=== PATIENT | female | born 1950 | race Caucasian/White ===

== ENCOUNTER 2017-09-09 10:00 | Emergency (ER) | payer OTHER ==
[~2017-09-09] VITALS: Ht 160 cm; Wt 73.9 kg
[~2017-09-09 10:00] MED LIST: ALBUTEROL SULFAT3 M1 INH; BACTRIM DS TAB1 EACH PO; CARDIZEM30 M1 PO; CYCLOBENZAPRINE5 M2 PO; GLUCOPHAGE XR500 M1 PO; LISINOPRIL5 M1 PO; MONTELUKAST SOD10 M1 PO; PANTOPRAZOLE SO40 M1 PO; PREDNISONE10 MG PO; REQUIP2 M1 PO; SIMVASTATIN40 M1 PO; SPIRIVA18 MCG INH; SYMBICORT 16010.2 GM INH; TIZANIDINE HCL2 M2 PO; VERAMYST10 GM NASB; WELLBUTRIN XL300 M2 PO; ZITHROMAX Z-PA250 M1 PO
[2017-09-09 10:06] VITALS: BP 170/83
--- NOTE | 2017-09-09 10:07 | ED HAND/WRIST INJURY COMPLAINT ---
History of Present Illness General Chief Complaint: Suture Removal/Wound Recheck Stated Complaint: WOUND CHECK Source: patient, old records Exam Limitations: no limitations Vital Signs & Intake/Output Vital Signs & Intake/Output Vital Signs Date Time Temp Pulse Resp B/P B/P Pulse O2 O2 Flow FiO2 Mean Ox Delivery Rate 09/09 1006 98.4 100 18 170/83 98 Room Air Allergies Coded Allergies: oxycodone (From PERCODAN) (Intermediate, VOMITING 04/28/16) Uncoded Allergies: CATS DOGS [place]M TREES SEASONAL MITES (04/28/16) Reconcile Medications Albuterol Sulfate 3 ML NEB 3 ML INH Q4HR PRN WHEEZING Budesonide/Formoterol Fumarate (Symbicort 160-4.5 Mcg Inhaler) 10.2 GM HFA.AER.AD 2 PUF INH BID BREATHING PROBLEMS (Reported) Bupropion HCl (Wellbutrin XL) 300 MG TAB.ER.24H 1 TAB PO QAM UNKNOWN ( Reported) Cyclobenzaprine HCl 5 MG TABLET 0.5 TAB PO DAILY PAIN (Reported) Cyclobenzaprine HCl 5 MG TABLET 1 TAB PO QPM HEADACHE (Reported) Diltiazem HCl (Cardizem) 30 MG TABLET 1 TAB PO BID HEART (Reported) Fluticasone Furoate (Veramyst) 10 GM SPRAY.SUSP 2 SPRAY [place] DAILY [place] ( Reported) Lisinopril 5 MG TABLET 1 TAB PO DAILY HEART (Reported) Metformin HCl (Glucophage XR) 500 MG TAB.ER.24H 1 TAB PO BID DIABETES ( Reported) with food Montelukast Sodium 10 MG TABLET 1 TAB PO DAILY ALLERGIES (Reported) Pantoprazole Sodium 40 MG TABLET.DR 1 TAB PO DAILY GI (Reported) Ropinirole HCl (Requip) 2 MG TABLET 1 TAB PO QPM UNKNOWN (Reported) Simvastatin (Simvastatin*) 40 MG TABLET 1 TAB PO QPM CHOLESTEROL (Reported) Sulfamethoxazole/Trimethoprim (Bactrim Ds Tablet) 800 MG-160 MG TABLET 1 TAB PO BID CELLULITIS Tiotropium [place] (Spiriva) 18 MCG CAP.W.DEV 1 CAP INH DAILY BREATHING PROBLEMS (Reported) Tizanidine HCl 2 MG CAPSULE 1 TAB PO BID UNKNOWN (Reported) Triage Note: 67 YO FEMALE TO ER FOR RE-EVAL OF WOUND TO L HAND. WAS DX WITH CELLULITIS, SEEN HERE YESTERDAY AND GIEN IV DOSE OF ANTIBIOTICS. Triage Nurses Notes Reviewed? yes HPI: 67-year-old female with history of arthritis started on antibiotics on Sunday for treatment of left hand sialitis presents for wound recheck. I saw her yesterday morning she was given a dose of IV Unasyn. X-rays were done the previous day which were normal. Patient denies any fever or chills overnight. She states this swelling and pain are somewhat better. She started the Bactrim in addition. Past History Travel History Traveled to [place] past 21 day No Medical History Any Pertinent Medical History? see below for history Neurological: migraine, brain tumor EENT: NONE Cardiovascular: hypertension, hyperlipidemia Respiratory: asthma, bronchitis, COPD, emphysema, pneumonia, BRONCHIESTESIS Gastrointestinal: NONE Hepatic: NONE Renal: NONE Musculoskeletal: disk herniation Psychiatric: NONE Endocrine: Ivana's thyroiditis Blood Disorders: NONE Cancer(s): NONE BROADCAST JOURNALIST/Reproductive: NONE Surgical History Surgical History: non-contributory Psychosocial History What is your primary language Bel[place]ian Tobacco Use: Never used Family History Family History, If Any: FATHER Angina Hx Contributory? No Review of Systems Review of Systems Constitutional: Denies: chills, fever. EENTM: Reports: no symptoms. Respiratory: Denies: cough, short of breath. Cardiovascular: Denies: chest pain, palpitations. GI: Denies: abdominal pain. Genitourinary: Reports: no symptoms. Musculoskeletal: Reports: joint pain, muscle pain. Skin: Reports: no symptoms. Neurological/Psychological: Reports: no symptoms. Hematologic/Endocrine: Denies: bruising, bleeding, polyuria, polydipsia. Immunologic/Allergic: Denies: splenectomy. All Other Systems: Reviewed and Negative Physical Exam Physical Exam General Appearance: well developed/nourished, mild distress Head: atraumatic Eyes: Bilateral: PERRL, EOMI. Ears, Nose, Throat: normal pharynx, normal ENT inspection, hearing grossly normal Neck: normal inspection, supple Cardiovascular/Respiratory: normal breath sounds, regular rate/rhythm Back: normal inspection Shoulder Left: normal range of motion, normal inspection Shoulder Right: normal range of motion, normal inspection Elbow Left: normal range of motion, normal inspection Elbow Right: normal range of motion, normal inspection Forearm Left: normal range of motion, normal inspection Forearm Right: normal range of motion, normal inspection Wrist Left: swelling, MILD ERYTHEMA Wrist Right: normal range of motion, normal inspection Hand Left: swelling, tender Hand Right: normal inspection, normal range of motion Skin: intact, normal color, warm/dry Lymphatic: no anterior cervical montse Diagram Hands Back 1) MILD ERYTHEMA/EDEMA Progress Differential Diagnosis: cellulitis, JOINT EFFUSION/ERYTHEMA Plan of Care: Feeling appearance of left hand pain erythema. Patient will continue Keflex and Bactrim and follow up with her doctor in the office. She was instructed to return if worse. Departure Departure Time of Disposition: 1024 Disposition: HOME OR SELF CARE Condition: Stable Clinical Impression Primary Impression: Cellulitis Referrals: Radha Orellana MD (PCP/Family) Additional Instructions: Continue both of your antibiotics. Elevate and rest of the hand as much as possible. Ice it as well. Take anti-inflammatory medications [id number] as needed for pain. Her turn to the ER for any worsening pain, redness, fever or chills. Departure Forms: Customer Survey General Discharge Information
== END 2017-09-09 10:48 ==
LOC: ERH 10:00
DX: Z48.00 Encounter for change or removal of nonsurgical wound dressing (principal)